=== PATIENT | male | born 1985 | race Caucasian/White ===

== ENCOUNTER 2022-01-21 11:04 | Emergency (ER) | payer SELFPAY ==
[~2022-01-21] VITALS: Ht 172.7 cm; Wt 72.5 kg
--- NOTE | 2022-01-21 11:21 | ED Upper Extremity ---
General Chief Complaint: Upper Extremity Stated Complaint: R SHOULDER PAIN,THROWN FROM HORSE Source: patient Exam Limitations: no limitations History of Present Illness Date Seen by Provider: Jan 21, 2022 Time Seen by Provider: 11:19 Initial Comments To ER with right shoulder pain after he was bucked off of a horse about 30 minutes to 1 hour prior to arrival did not hit his head and no loss of consciousness. Denies neck pain back pain chest or abdominal pain. He states that he landed directly on his right shoulder and now has significant pain to the shoulder. He has a history of a right labrum repair surgically when he was in high school and left shoulder surgery a couple of years ago. Onset: just prior to arrival Severity: severe Pain/Injury Location: right shoulder Method of Injury: fell Modifying Factors: Worse With Movement Allergies and Home Medications Allergies Coded Allergies: etomidate (Verified Allergy, Unknown, 01/21/22) ketamine (Verified Allergy, Unknown, 01/21/22) morphine (Verified Allergy, Unknown, 01/21/22) Patient Home Medication List Home Medication List Reviewed: Yes Hydrocodone/Acetaminophen (Hydrocodone-Acetamin 5-325 mg) 5 Mg-325 Mg Tablet, 1 TAB PO Q4H PRN for PAIN-MODERATE (5-7) Prescribed by: MOSES PADILLA on 01/21/22 1233 Review of Systems Constitutional: see HPI EENTM: see HPI Respiratory: no symptoms reported Cardiovascular: no symptoms reported Genitourinary: no symptoms reported Musculoskeletal: see HPI, joint pain Skin: no symptoms reported Psychiatric/Neurological: No Symptoms Reported Physical Exam Vital Signs Vital Signs - First Documented 01/21/22 01/21/22 11:10 11:51 Temp 36.6 Pulse 102 Resp 20 B/P (MAP) 134/101 (112) Pulse Ox 95 O2 Delivery Room Air O2 Flow Rate 2.00 2.00 Capillary Refill : Height, Weight, BMI Height: '" Weight: lbs. oz. kg; BMI Method: General Appearance: WD/WN, no apparent distress, thin (Moderate distress related to pain.) HEENT: PERRL/EOMI, normal ENT inspection, other (Tympanic membranes are normal no hemotympanum no camacho sign no raccoon eyes no scalp laceration or abrasion. No neck tenderness to palpation) Respiratory: no respiratory distress, no accessory muscle use Gastrointestinal: normal bowel sounds, non tender, soft Shoulder: deformity, limited ROM, pain, soft tissue tenderness Elbow/Forearm: normal inspection, non-tender Wrist: Yes normal inspection, Yes non-tender Hand: normal inspection, non-tender Neurologic/Psychiatric: alert, normal mood/affect, oriented x 3 Skin: normal color, warm/dry Progress/Results/Core Measures Results/Orders My Orders Orders - MOSES PADILLA APRN Ed Iv/Invasive Line Start (01/21/22 11:17) Shoulder, Right, 2 Views (01/21/22 11:17) Fentanyl Inj (Sublimaze Injection) (01/21/22 11:30) Ns Iv 1000 Ml (Sodium Chloride 0.9%) (01/21/22 11:30) Ondansetron Injection (Zofran Injectio (01/21/22 11:30) Conscious Sedation (01/21/22 11:17) Vital Signs-Conscious Sedation (01/21/22 11:17) Propofol Injection (Diprivan Injection) (01/21/22 11:45) Fentanyl Inj (Sublimaze Injection) (01/21/22 12:00) Fentanyl Inj (Sublimaze Injection) (01/21/22 12:14) Midazolam Injection (Versed Injection) (01/21/22 12:14) Fentanyl Inj (Sublimaze Injection) (01/21/22 12:30) Midazolam Injection (Versed Injection) (01/21/22 12:30) Shoulder, Right, 1 View (01/21/22 12:27) Shoulder, Right, 1 View (01/21/22 12:27) Propofol Injection (Diprivan Injection) (01/21/22 12:30) Medications Given in ED Current Medications Medications Dose Ordered Sig/Ava Route Start Time Stop Time Status Last Admin Dose Admin Fentanyl Citrate 50 mcg ONCE ONCE IVP 01/21/22 11:30 01/21/22 11:31 DC 01/21/22 11:33 50 MCG Fentanyl Citrate 125 mcg ONCE ONCE IVP 01/21/22 12:30 01/21/22 12:31 DC 01/21/22 12:36 100 MCG Midazolam HCl 3 mg ONCE ONCE IVP 01/21/22 12:30 01/21/22 12:31 DC 01/21/22 12:37 3 MG Ondansetron HCl 4 mg ONCE ONCE IVP 01/21/22 11:30 01/21/22 11:31 DC 01/21/22 11:33 4 MG Propofol 40 mg ONCE ONCE IV 01/21/22 11:45 01/21/22 11:47 DC 01/21/22 11:55 40 MG Propofol 160 mg ONCE ONCE IV 01/21/22 12:30 01/21/22 12:31 DC 01/21/22 12:38 160 MG Vital Signs/I&O 01/21/22 01/21/22 11:10 11:51 Temp 36.6 Pulse 102 Resp 20 B/P (MAP) 134/101 (112) Pulse Ox 95 O2 Delivery Room Air Nasal Cannula O2 Flow Rate 2.00 2.00 Departure Communication (Admissions) 1230-conscious sedation was done. Required a lot of sedation. Given his aller gy list we chose to start with 50 mcg of fentanyl and 40 mg of etomidate. This had essentially no effect of then causing slight sedation. We ended up using a total of 125 mcg of fentanyl, 3 mg of Versed, 200 mg in total of propofol using 30 to 40 mg doses at a time before we were able to achieve enough sedation for him to relax. At the end of reduction using traction and external rotation there was a lot of laxity noted at the shoulder joint though he does report that it feels better. We will have him follow-up with orthopedics. He is placed in a sling at this point. We did 2 x-rays, 1 during reduction attempt and 1 at the end showing successful reduction 1258-patient has elected to sign out AGAINST MEDICAL ADVICE as a did not see his independent driver. He is alert he is oriented he is talking and making decisions. Despite his large doses of sedating medications. I did speak with his on the phone and she assures me that she is on her way to pick him up and he is not driving himself home, he does not have a car here. I walked with him to the parking lot, he walks unassisted with a steady gait, carries on conversation appropriately. Impression Primary Impression: Dislocation of right shoulder joint Disposition: HOME, SELF-CARE Condition: Stable Departure-Patient Inst. Decision time for Depature: 12:31 Referrals: NO,LOCAL PHYSICIAN (PCP) Primary Care Physician CARLOS LIND MD,CARL COTTON,DANIEL Fierro MD Patient Instructions: Moderate Sedation in Adults (DC), Shoulder Dislocation Add. Discharge Instructions: Wear the sling at all times. Ice pack to the shoulder. Pain medication as directed. Call an orthopedic surgeon of your choosing today to make an appointment to be seen within 1 week for recheck. You will likely need further imaging of the shoulder such as MRI to evaluate for rotator cuff injury. All discharge instructions reviewed with patient and/or family. Voiced understanding. Scripts Hydrocodone/Acetaminophen (Hydrocodone-Acetamin 5-325 mg) 5 Mg-325 Mg Tablet 1 TAB PO Q4H PRN for PAIN-MODERATE (5-7), #20 TAB Prov: MOSES PADILLA APRN 01/21/22 MOSES PADILLA APRN Jan 21, 2022 11:21
[2022-01-21] MEDS ORDERED: NS IV 1000 ML 1,000 ML IV SCH (11:30)
[2022-01-21] MEDS ORDERED: fentaNYL INJ 100 MCG/2 ML AMP IVP ONE ×2 (11:30→12:30)
[2022-01-21] MEDS ORDERED: ONDANSETRON 4 MG/2 ML (SDV) Z0FRAN IVP ONE (11:30)
[2022-01-21] MEDS ORDERED: proPOfol 200 MG/20 ML (DIPRIVAN) VIAL IV ONE ×2 (11:45→12:30)
--- NOTE | 2022-01-21 11:46 | Diagnostic Imaging Report ---
HISTORY: Fall from horse, right shoulder pain TECHNIQUE: 2 views of the right shoulder COMPARISON: None FINDINGS: Alignment of the right shoulder appears abnormal, and there appears to be an anterior dislocation of the glenohumeral joint. There is mild irregularity at the anterior glenoid labrum which could be from a Bankart fracture. No other fractures are seen. IMPRESSION: 1. Anterior dislocation of the right glenohumeral joint with suspected Bankart fracture. Dictated by: Dictated on workstation # [id number]
[2022-01-21] MEDS ORDERED: fentaNYL INJ 100 MCG/2 ML AMP ONE ×2 (12:00→12:14)
[2022-01-21] MEDS ORDERED: MIDAZOLAM 5 MG/5 ML (VERSED) VIAL ONE (12:14)
[2022-01-21] MEDS ORDERED: MIDAZOLAM 5 MG/5 ML (VERSED) VIAL IVP ONE (12:30)
[2022-01-21] MEDS ORDERED: ACHD5005 PO (12:33)
[2022-01-21 12:49] VITALS: BP 114/69
--- NOTE | 2022-01-21 13:24 | Diagnostic Imaging Report ---
INDICATION: Postreduction. COMPARISON: Imaging from same date. TECHNIQUE: Single frontal radiograph of the right shoulder is obtained dated 01/21/2022 at 12:25 PM FINDINGS: The humeral head is again noted inferiorly positioned and medial positioned in relationship to the glenoid. There is associated widening of the subacromial space. No definite fracture identified at this time. IMPRESSION: Persistent dislocation of the right glenohumeral joint. Dictated by: Dictated on workstation # [id number]
--- NOTE | 2022-01-21 13:25 | Diagnostic Imaging Report ---
INDICATION: Postreduction. COMPARISON: Imaging from same date TECHNIQUE: Single radiograph of the right shoulder dated 01/21/2022 FINDINGS: Glenohumeral joint relationship appears improved and now anatomic based upon the single frontal radiograph. No definite shoulder fracture. No new dislocation. No suspicious radiopaque foreign body. IMPRESSION: Interval reduction of previously noted right glenohumeral joint dislocation based upon the single frontal radiograph. Dictated by: Dictated on workstation # [id number]
== END 2022-01-21 12:49 | disposition left against medical advice (07) ==
LOC: ER 11:07
DX: S43.004A Unspecified dislocation of right shoulder joint, initial encounter (principal); W55.12XA Struck by horse, initial encounter
CPT/HCPCS: 73020; 73030; 93041